=== PATIENT | male | born 1955 | race African-American/Black ===

== ENCOUNTER 2023-01-03 09:54 | Outpatient (AMB) | payer MEDICAID, SELFPAY ==
[2023-01-03 10:20] VITALS: BP 142/70; PULSE 79; TEMP 35.9; O2SAT 98; BMI 34.9
--- NOTE | 2023-01-03 10:20 | AM.OFFWIN_ITS ---
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 Pt states he has been feeling dizzy, c/o headache and states he is in discomfort when he urinates. Patient Tobacco Use Status: Never used Tobacco Allergies No Known Allergies Allergy (Verified 01/03/23 10:22) Do you need a note to return to daycare/school/sports/work: No HPI HPI Comments History of Present Illness Details 67-year-old male presents for medication refills. He is trying to establish primary care at this facility, and states that he has not had medications in approximately 6 months. [facility] Social History Patient Tobacco Use Status: Never used Tobacco Review of Systems Const Details: Constitutional: No Fever, No Chills Cardiovascular: No Chest Pain, No SOB Respiratory: No Cough, No Dyspnea Gastrointestinal: No Nausea, No Vomiting, No Diarrhea, No abdominal Pain Genitourinary: Positive Dysuria, No Hematuria Musculoskeletal: No joint pain, No Myalgias, No Joint Swelling Skin: No Skin lacerations, No rash Neuro: No Weakness, No Numbness, No Paresthesias, No Dizziness, No Headache All systems reviewed & are unremarkable except as noted in HPI and below Physical Exam Vital Signs: Last Vital Signs Temp 96.6 F L 01/03/23 10:20 Pulse 79 01/03/23 10:20 BP 142/70 H 01/03/23 10:20 Pulse Ox 98 01/03/23 10:20 Oxygen Delivery Method Room Air 01/03/23 10:20 BMI result Body Mass Index 34.9 Appearance: Alert. Oriented X3. No acute distress. Eyes: Pupils equal, round and reactive to light. Neck: Normal inspection. Neck supple. CVS: Normal heart rate and rhythm. Pulses normal. Respiratory: No respiratory distress. Breath sounds normal. Skin: Skin warm and dry. Normal skin color. Normal skin turgor. Extremities: No lower extremity edema. Gait balanced and coordinated. Neuro: No motor deficit. No sensory deficit. Cranial nerves 2-12 intact. Results AMB Random Glucose (hemocue) AMB Random Glucose (hemocue) 199 mg/dL Last Edit by Jessica Martinez, ROLAN on 01/03/23 10:35 AMB Urinalysis, Automated UA Leukoctes 0 Farrukh/uL Last Edit by Jessica Martinez, ROLAN on 01/03/23 10:36 UA Nitrite Negative Last Edit by Jessica Martinez, GRAIN ORIGINATION SPECIALIST on 01/03/23 10:36 UA Urobilinogen 0.2 mg/dL Last Edit by Jessica Martinez, GRAIN ORIGINATION SPECIALIST on 01/03/23 10:36 UA Protein 15 mg/dL Last Edit by Jessica Maritnez, GRAIN ORIGINATION SPECIALIST on 01/03/23 10:36 UA pH 6.0 Last Edit by Jessica Martinez, GRAIN ORIGINATION SPECIALIST on 01/03/23 10:36 UA Blood 0 Minh/uL Last Edit by Jessica Martinez, GRAIN ORIGINATION SPECIALIST on 01/03/23 10:36 UA Specific [place] 1.015 Last Edit by Jessica Martinez, ROLAN on 01/03/23 10:3 6 UA Ketone Negative Last Edit by Jessica Martinez, GRAIN ORIGINATION SPECIALIST on 01/03/23 10:36 UA Bilirubin 0 mg/dL Last Edit by Jessica Martinez, GRAIN ORIGINATION SPECIALIST on 01/03/23 10:36 UA Glucose 0 mg/dL Last Edit by Jessica Martinez, GRAIN ORIGINATION SPECIALIST on 01/03/23 10:36 Results Reviewed Results Reviewed: Laboratory Last Values Random Glu (Clinic) 199 mg/dL 01/03/23 10:34 Urine pH (Auto) 6.0 01/03/23 10:34 Specific [place] (Auto) 1.015 01/03/23 10:34 Urine Protein (Auto) 15 mg/dL 01/03/23 10:34 Glucose (UA)(Auto) 0 mg/dL 01/03/23 10:34 Urine Ketones (Auto) Negative 01/03/23 10:34 Urine Blood (Auto) 0 Minh/uL 01/03/23 10:34 Urine Nitrite (Auto) Negative 01/03/23 10:34 Urine Bilirubin (Auto) 0 mg/dL 01/03/23 10:34 Urine Urobilinogen (Auto) 0.2 mg/dL 01/03/23 10:34 Leukocyte Esterase (Auto) 0 Farrukh/uL 01/03/23 10:34 Assessment & Plan Assessment & Plan (1) Medication refill: Code(s): Z76.0 - Encounter for issue of repeat prescription Plan 67-year-old male presents for medication refills. He is trying to establish primary care at this facility, and states that he has not had medications in approximately 6 months. He recently moved in with his daughter from [facility]. He has been unable to obtain primary care to get his medications refilled. Does report some dysuria, as he does have a history of prostate cancer. Patient is alert oriented x4, answering questions politely and appropriately, gait is well balanced well coordinated. Afebrile. Nontoxic. Vitals indicate a blood pressure of 142/70, heart rate of 79, a negative urinalysis dipstick, and blood sugar of 199. Considering that this patient is trying to establish primary care at this facility, I will order the lab values for baseline, and refill his prescriptions with the exception of the Trulicity. Patient does understand that he must continue to follow up for primary care provider. I did discuss this plan in detail with his daughter. For the interim, I will refer to Dr. Ireland, and patient and patient's family does understand that Dr. Ireland may not be his primary care provider however they need someone to follow-up with while trying to establish care. Patient verbalized understanding of discharge instructions. Verbalized understandings of signs and symptoms indicating need for emergent intervention. Orders: Orders Basic Metabolic Panel Today Z76.0 - Encounter for issue of repeat prescription Complete Blood Count Auto Diff Today Z76.0 - Encounter for issue of repeat prescription AMB Random Glucose (hemocue) Today Z13.9 - Encounter for screening, unspecified AMB Urinalysis Automated Today Z13.9 - Encounter for screening, unspecified Medications: New amlodipine 10 mg PO DAILY 30 tabs 3RF atorvastatin 80 mg PO BEDTIME 30 tabs 3RF clopidogrel 75 mg PO DAILY 30 tabs 3RF tamsulosin 0.4 mg PO DAILY 30 caps 3RF metformin 1,000 mg PO BID 30 days 60 tabs 3RF Patient Instructions: Your evaluated for medication refill. We refilled amlodipine, atorvastatin, Plavix, metformin, and tamsulosin. It may take several months to obtain a primary care physician. Continue to use urgent care with [facility] for your medical needs. Your lab results are pending. Thank you for choosing this urgent care for evaluation. Please follow-up with primary care physician as needed. Return to the emergency department for any new, concerning, or worsening symptoms. Coding Level of Care Code New Pt Level 3 (43484) Diagnoses Medication refill Z76.0
== END 2023-01-03 11:26 | disposition home or self-care (01) ==
PROVIDERS: Visit Provider Nurse Practitioner Family
DX: R30.0 Dysuria (principal); Z76.0 Encounter for issue of repeat prescription; R42 Dizziness and giddiness
CPT/HCPCS: 81003; 82948; 99203

== ENCOUNTER 2023-01-03 10:57 | Outpatient (REF) | payer MEDICAID, SELFPAY ==
[2023-01-03 13:48] LABS: MANUAL DIFF FLAG NO
[2023-01-03 14:06] LABS: Basophils Percent Auto 0.5 % (0-2); Eosinophils Absolute Auto 0.1 X10*3/uL (0.0-0.4); Eosinophils Percent Auto 1.1 % (0-4); Hematocrit 44.8 % (42.0-52.0); Hemoglobin 14.8 g/dl (14.0-18.0); Imm Gran Abs Auto 0.02 X10*3/uL (0.00-0.03); Imm Gran Pct Auto 0.4 % (0.0-0.4); Lymphocytes Absolute Auto 1.4 X10*3/uL (1.2-4.9); Lymphocytes Percent Auto 25.5 % (20-40); Mean Corpuscular Hemoglobin 27.2 pg (27.0-33.0); Mean Corpuscular Volume 82.4 fL (80.0-98.0); Mean Platelet Volume 10.3 fL (9.4-12.4); Monocytes Absolute Auto 0.4 X10*3/uL (0.1-1.2); Monocytes Percent Auto 7.1 % (2-11); Neutrophils Absolute Auto 3.7 x10*3/uL (2.0-8.3); Neutrophils Percent Auto 65.4 % (45-73); Platelet Count 303 X10*3/uL (160-400); Red Blood Count 5.44 X10*6/uL (4.60-5.80); Red Cell Distribution Width 15.2 % (11.0-16.0); White Blood Count 5.7 X10*3/uL (4.8-10.8)
[2023-01-03 15:04] LABS: Anion Gap 12 (12-20); Blood Urea Nitrogen 16 mg/dL (9-16); Calcium 9.7 mg/dL (8.4-10.2); Carbon Dioxide 26 mmol/L (22-29); Chloride 105 mmol/L (96-108); Estimated Glomerular Filt Rate > 60; Glucose Random 189 mg/dL (60-115); Potassium 4.4 mmol/L (3.3-5.1); Sodium 139 mmol/L (135-145)
== END 2023-01-03 10:58 | disposition home or self-care (01) ==
LOC: HO.HMGCLDS 10:57
PROVIDERS: Visit Provider Nurse Practitioner Family
DX: Z13.9 Encounter for screening, unspecified (principal); Z76.0 Encounter for issue of repeat prescription
CPT/HCPCS: 36415; 80048; 85025